=== PATIENT | female | born 1945 | race Caucasian/White ===

== ENCOUNTER 2021-11-12 09:05 | Day surgery (SDC) | payer MEDICARE ==
[~2021-11-12] VITALS: Ht 160 cm; Wt 77.3 kg
[~2021-11-12 09:05] MED LIST: Bystolic20 MG PO; ELIQUIS5 M2 PO; EUTHYROX88 MCG PO; FURO20 PO; POTA10T PO; ROSU5 PO
--- NOTE | 2021-11-12 13:08 | NUR ---
11/12/21 1308 Elvin Byers LATE ENTRY FOR 1040. IV IN LEFT AC INFILTRATED. REMOVED IN TACT. IV ATTEMPTED IN R AC. FAILED, VEIN BLEW. IV SUCCESSFUL IN RIGHT HAND.
== END 2021-11-12 11:20 | disposition home or self-care (01) ==
LOC: ORSCSDS 09:05
PROVIDERS: Ophthalmology
PROC: 08RJ3JZ Replacement of Right Lens with Synthetic Substitute, Percutaneous Approach (ICD-10-PCS; principal; 2021-11-12 10:30)
DX: H25.13 Age-related nuclear cataract, bilateral (principal); I48.91 Unspecified atrial fibrillation; I10 Essential (primary) hypertension; Z87.891 Personal history of nicotine dependence; E03.9 Hypothyroidism, unspecified; Z79.899 Other long term (current) drug therapy
CPT/HCPCS: J2001; J2250; J3010; J3301; J7040; V2632

== ENCOUNTER 2021-11-19 10:45 | Day surgery (SDC) | payer MEDICARE ==
[~2021-11-19] VITALS: Ht 152.4 cm; Wt 76.7 kg
--- NOTE | 2021-11-19 11:33 | NUR ---
11/19/21 1133 Rubi Drake [address] 1121 BY [facility].T
== END 2021-11-19 13:05 | disposition home or self-care (01) ==
LOC: ORSCSDS 10:45
PROVIDERS: Ophthalmology
PROC: 08RK3JZ Replacement of Left Lens with Synthetic Substitute, Percutaneous Approach (ICD-10-PCS; principal; 2021-11-19 12:00)
DX: H25.12 Age-related nuclear cataract, left eye (principal); I48.91 Unspecified atrial fibrillation; E78.5 Hyperlipidemia, unspecified; I10 Essential (primary) hypertension; E03.9 Hypothyroidism, unspecified; E66.9 Obesity, unspecified; Z68.33 Body mass index [BMI] 33.0-33.9, adult; Z79.01 Long term (current) use of anticoagulants; Z79.899 Other long term (current) drug therapy; Z87.891 Personal history of nicotine dependence
CPT/HCPCS: J2001; J3301; J7040; V2632